=== PATIENT | female | born 1975 | race Caucasian/White ===

== ENCOUNTER 2019-07-15 08:44 | Outpatient (CLI) | payer OTHER ==
[~2019-07-15 08:44] MED LIST: MEDROXYPROGESTER5 MG PO
== END 2019-07-15 09:11 | disposition home or self-care (01) ==
LOC: NUCLEAR 08:44
DX: C54.1 Malignant neoplasm of endometrium (principal)
CPT/HCPCS: 78815; A9552

== ENCOUNTER 2019-08-12 07:00 | Outpatient (CLI) | payer OTHER | END 2019-08-12 10:00 | disposition home or self-care (01) | LOC: MRI 07:00 | DX: C54.1 Malignant neoplasm of endometrium (principal); R74.8 Abnormal levels of other serum enzymes; N76.4 Abscess of vulva; Z90.710 Acquired absence of both cervix and uterus | CPT/HCPCS: 72196; 74182 ==

== ENCOUNTER 2020-08-15 16:18 | Outpatient (CLI) | payer OTHER | END 2020-08-15 16:21 | disposition home or self-care (01) | LOC: LAB 16:18 | PROVIDERS: ATTEND Radiology Diagnostic Radiology | DX: N20.0 Calculus of kidney (principal) ==

== ENCOUNTER 2020-08-22 08:55 | Outpatient (CLI) | payer OTHER | END 2020-08-22 08:59 | disposition home or self-care (01) | LOC: MRI 08:55 | PROVIDERS: ATTEND Internal Medicine Hematology & Oncology | DX: C54.1 Malignant neoplasm of endometrium (principal); R74.8 Abnormal levels of other serum enzymes; K76.0 Fatty (change of) liver, not elsewhere classified; Z98.890 Other specified postprocedural states; E66.3 Overweight; Z80.0 Family history of malignant neoplasm of digestive organs; Z80.6 Family history of leukemia; Z80.49 Family history of malignant neoplasm of other genital organs; Z90.710 Acquired absence of both cervix and uterus | CPT/HCPCS: 72196; 74182 ==

== ENCOUNTER 2021-02-08 10:03 | Emergency (ER) | payer OTHER ==
[~2021-02-08] VITALS: Ht 162.6 cm; Wt 128.8 kg
[2021-02-08] MEDS ORDERED: KETO10TA2 PO (14:01)
[2021-02-08] MEDS ORDERED: NORFLEX100MG PO (14:01)
== END 2021-02-08 14:16 | disposition home or self-care (01) ==
LOC: ER 10:03
DX: M54.2 Cervicalgia (principal); V49.88XA Car occupant (driver) (passenger) injured in other specified transport accidents, initial encounter; Y93.89 Activity, other specified; Y92.488 Other paved roadways as the place of occurrence of the external cause

== ENCOUNTER → 2021-07-06 08:12 | Outpatient (CLI) | payer OTHER ==
[~2021-07-06 08:12] MED LIST changes: +KETO10TA2 PO; +NORFLEX100MG PO
== END | disposition home or self-care (01) ==
LOC: NUCLEAR 08:00
DX: C54.1 Malignant neoplasm of endometrium (principal)
CPT/HCPCS: 78815; A9552

== ENCOUNTER 2021-10-09 14:56 | Outpatient (CLI) | payer OTHER | END 2021-10-09 15:06 | disposition home or self-care (01) | LOC: MRI 14:56 | DX: M54.2 Cervicalgia (principal) | CPT/HCPCS: 72141 ==

== ENCOUNTER 2025-03-09 08:15 | Outpatient (CLI) | payer OTHER | END 2025-03-10 09:03 | disposition home or self-care (01) | LOC: NUCLEAR 08:15 | PROVIDERS: ATTEND Internal Medicine Hematology & Oncology | DX: C54.1 Malignant neoplasm of endometrium (principal) ==

== ENCOUNTER 2025-03-09 08:53 | Outpatient (CLI) | payer OTHER | END 2025-03-09 08:55 | disposition home or self-care (01) | LOC: MRI 08:53 | PROVIDERS: ATTEND Internal Medicine Hematology & Oncology | DX: C54.1 Malignant neoplasm of endometrium (principal) | CPT/HCPCS: 72196 ==